=== PATIENT | male | born 1960 | race Caucasian/White ===

== ENCOUNTER 2021-05-17 11:04 | Emergency (ER) | payer MEDICAID ==
[2021-05-17 11:11] VITALS: BP 161/70
[2021-05-17] MEDS ORDERED: predniSONE 20 MG Tab PO ONE (11:28)
[2021-05-17] MEDS ORDERED: Albuterol 8 GM Inhaler INH ONE (11:28)
[2021-05-17 12:44] LABS: CORONAVIRUS COVID-19 NAA NEGATIVE (NEGATIVE)
[2021-05-17] MEDS ORDERED: Azithromycin 200 MG/5 ML Susp 30 ML Bottle PO ONE ×2 (14:06→14:12)
[2021-05-17 14:25] VITALS: PULSE 83
[2021-05-17] MEDS ORDERED: Azithromycin 250 MG Tab PO SCH (14:30)
== END 2021-05-17 15:18 | disposition home or self-care (01) ==
LOC: JP.ED 11:04
DX: J44.1 Chronic obstructive pulmonary disease with (acute) exacerbation (principal); Z72.0 Tobacco use; Z20.822 Contact with and (suspected) exposure to COVID-19
CPT/HCPCS: 0241U; 71045; 94640; 99285; A9270; J7512

== ENCOUNTER 2022-02-14 16:15 | Emergency (ER) | payer MEDICAID ==
[2022-02-14] MEDS ORDERED: Sodium Chloride 0.9% 10 ML Syringe FLUSH PRN (16:20)
[2022-02-14] MEDS ORDERED: Thiamine 200 MG/2 ML MDV IVPUSH ONE (16:24)
[2022-02-14] MEDS ORDERED: Naloxone 0.4 MG/ML SDV IVPUSH PRN (16:25)
[2022-02-14] MEDS ORDERED: Dextrose 5%-Lactated Ringers 1,000 ML IV SCH (16:30)
[2022-02-14 17:15] LABS: ESTIMATED GFR 69 mL/min (>60)
[2022-02-14 18:33] VITALS: BP 143/81; PULSE 65
[2022-02-14] MEDS ORDERED: LORazepam 2 MG/ML SDV ONE (19:40)
== END 2022-02-14 20:33 ==
LOC: JP.ED 16:15
DX: F54 Psychological and behavioral factors associated with disorders or diseases classified elsewhere (principal); Z20.822 Contact with and (suspected) exposure to COVID-19
CPT/HCPCS: 36415; 70450; 71045; 80053; 80305; 82140; 82803; 83605; 83735; 84145; 84484; 85025; 86140; 87635; 93005; 96361; 96374; 96375; 99285; J2310; J3411; J3490; J7121; U0002